=== PATIENT | female | born 1955 | race Caucasian/White ===

== ENCOUNTER 2016-11-12 09:28 | Outpatient (CLI) | payer BC ==
--- NOTE | 2016-11-25 13:10 | Mammography Report ---
DIGITAL SCREENING MAMMOGRAM: 11/12/2016 CLINICAL INDICATION: A 61-year-old for screening. The patient reports having had previous mammograms in [place], [place], but films are not yet available for direct comparison. If they become available, an addendum will be issued. Otherwise, t his will serve as a new baseline. TECHNIQUE: Routine CC and MLO projections were obtained of the breasts as well as bilateral laterall y exaggerated craniocaudal views. FINDINGS: The breasts demonstrate scattered fibroglandular densities bilaterally. A few punctate, t ypically benign calcifications are present. No suspicious masses, clustered microcalcifications, or regions of architectural distortion are identified. IMPRESSION: BENIGN FINDINGS. RECOMMENDATION: Routine annual screening unless otherwise clinically indicated. BIRADS CATEGORY 2 - BENIGN FINDINGS. STANDARD QUALIFYING STATEMENTS 1. This examination was reviewed with the aid of Computer-Aided Detection (CAD). 2. A negative or benign imaging report should not delay biopsy if clinically suspicious findings are present. Consider surgical consultation if warranted. More than 5% of cancers are not identified by i maging. 3. Dense breasts may obscure an underlying neoplasm. JOB #: [id number] EXT JOB #:[id number]
== END 2016-11-12 09:29 | disposition home or self-care (01) ==
LOC: DI 09:28
PROVIDERS: ATTEND Family Medicine
DX: Z12.31 Encounter for screening mammogram for malignant neoplasm of breast (principal)
CPT/HCPCS: 77067

== ENCOUNTER 2016-11-12 09:29 | Outpatient (CLI) | payer BC ==
--- NOTE | 2016-11-13 06:44 | DEXA Report ---
DEXA: 11/12/2016 CLINICAL INDICATION: Osteoporosis. TECHNIQUE: Dual energy x-ray absorptiometry (DXA) was performed on a [employer] system. Regions measured are the AP spine, femoral neck, and, if needed, forearm. COMPARISON: None. In accordance with the International Society for Clinical Densitometry (ISCD) guidelines, data from previous exams may be reanalyzed using current recommendations and techniques. This is done to allow a more accurate basis for comparison with the current study. FINDINGS: The data for the lumbar spine is as follows: REGION BMD (g/cm/cm) T-SCORE Z-SCORE L1 0.715 -3.5 -2.2 L2 0.718 -4.0 -2.7 L3 0.832 -3.1 -1.8 L4 0.913 -2.4 -1.1 TOTAL 0.801 -3.2 -1.9 NOTE: All evaluable vertebrae are used for classification. The data for the hip is as follows: REGION BMD (g/cm/cm) T-SCORE Z-SCORE Neck 0.668 -2.7 -1.4 TOTAL 0.671 -2.7 -1.7 NOTE: The femoral neck or total proximal femur, whichever is lowest, is used for classification. IMPRESSION: THE WHO CLASSIFICATION BASED ON THE INTERNATIONAL REFERENCE STANDARD IS OSTEOPOROSIS. THE FRACTURE RISK IS HIGH. RECOMMENDATION: Patients with diagnosis of osteoporosis or osteopenia should have regular bone mineral density assessment. For those eligible for Medicare, routine testing is allowed once every 2 years. Testing frequency can be increased for patients who have rapidly progressing disease or for those who are receiving medical therapy to restore bone mass. COMMENT: World Health Organization (WHO) definitions for osteoporosis and osteopenia: NORMAL BMD: T-score at -1.0 or higher, fracture risk is low. OSTEOPENIA BMD: T-score between -1.0 and -2.5, fracture risk is increased. OSTEOPOROSIS BMD: T-score at -2.5 or lower, fracture risk high. National Osteoporosis Foundation recommends: 1. Obtain adequate dietary calcium (at least 1200 mg per day) and vitamin D (400 -800 international units per day). 2. Participate, as appropriate, in regular weightbearing and muscle- strengthening exercise. 3. Avoid tobacco use and reduce alcohol and caffeine intake. 4. For more detailed information see the website at www.NOF.org. MTDD
== END 2016-11-12 09:30 | disposition home or self-care (01) ==
LOC: DI 09:29
PROVIDERS: ATTEND Family Medicine
DX: M81.0 Age-related osteoporosis without current pathological fracture (principal)
CPT/HCPCS: 77080

== ENCOUNTER 2017-02-03 13:30 | Outpatient (CLI) | payer BC ==
--- NOTE | 2017-02-03 16:09 | XRAY Report ---
COMPLETE CERVICAL SPINE: 02/03/2017 CLINICAL INDICATION: Neck pain. FINDINGS: AP, lateral, oblique, and odontoid views of the cervical spine demonstrate straightening o f the normal cervical lordosis. There is no evidence of fracture or subluxation. The disk spaces are preserved. The prevertebral soft tissues are unremarkable. IMPRESSION: REVERSAL OF THE NORMAL CERVICAL LORDOSIS. NO EVIDENCE OF FRACTURE. JOB #: [id number] EXT JOB #:[id number]
--- NOTE | 2017-02-03 16:12 | XRAY Report ---
TWO VIEW THORACIC SPINE: 02/03/2017 CLINICAL INDICATION: Pain. FINDINGS: Frontal and lateral views of the thoracic spine demonstrate normal height and alignment of the vertebral bodies. The disk spaces are preserved. There is no evidence of compression fracture. N o paraspinal hematoma is seen. IMPRESSION: NORMAL THORACIC SPINE. JOB #: [id number] EXT JOB #:[id number]
== END 2017-02-03 13:31 | disposition home or self-care (01) ==
LOC: DI.S 13:30
PROVIDERS: ATTEND Nurse Practitioner Family
DX: M54.2 Cervicalgia (principal); M54.9 Dorsalgia, unspecified; R07.9 Chest pain, unspecified
CPT/HCPCS: 72050; 72070

== ENCOUNTER 2018-01-07 09:08 | Outpatient (CLI) | payer BC | END 2018-01-07 09:09 | disposition home or self-care (01) | LOC: DI 09:08 | PROVIDERS: ATTEND Internal Medicine | DX: Q87.43 Marfan syndrome with skeletal manifestation (principal) | CPT/HCPCS: 93306 ==

== ENCOUNTER 2018-02-14 12:47 | Outpatient (CLI) | payer BC | END 2018-02-14 12:48 | disposition home or self-care (01) | LOC: LAB.F 12:47 | PROVIDERS: ATTEND Internal Medicine | DX: E03.9 Hypothyroidism, unspecified (principal); M81.0 Age-related osteoporosis without current pathological fracture | CPT/HCPCS: 36415; 82310; 83519; 84100; 84439; 84443; 84481 ==

== ENCOUNTER 2018-02-15 08:00 | Outpatient (CLI) | payer BC ==
[2018-02-15 18:53] LABS: THYROID STIMULATING HORMONE 0.19 uIU/mL (0.34-5.60)
[2018-02-15 18:55] LABS: FREE T4 (FREE THYROXINE) 1.28 ng/dL (0.58-1.64)
== END 2018-02-15 08:01 ==
LOC: LAB.F 08:00
PROVIDERS: ATTEND Internal Medicine
DX: M81.0 Age-related osteoporosis without current pathological fracture (principal); E03.9 Hypothyroidism, unspecified
CPT/HCPCS: 36415; 82310; 83970; 84100; 84439; 84443; 84481

== ENCOUNTER 2019-03-30 10:56 | Outpatient (CLI) | payer BC ==
--- NOTE | 2019-03-30 16:25 | DEXA Report ---
Reason: OSTEOPOROSIS Procedure Date: 03/30/2019 Accession Number: [id number] / [id number] Procedure: DEX - Dexa Spine and/or Hip CPT Code: Final Report FULL RESULT: EXAM: Dexa Spine and/or Hip DATE: 03/30/2019 11:13 AM CLINICAL HISTORY: POSTMENOPAUSAL. OSTEOPOROSIS. TECHNIQUE: Dual energy x-ray absorptiometry (DXA) was performed on a [email or web address] System. Regions measured are the AP Spine, femoral neck, and if needed forearm. COMPARISON: 11/12/2016 In accordance with the International Society for Clinical Densitometry (ISCD) guidelines, data from previous exams may be reanalyzed using current recommendations and techniques. This is done to allow a more accurate basis for comparison with the current study. FINDINGS: The data for the lumbar spine is as follows: BMD (g/cm/cm) T-SCORE Z-SCORE REGION L1 0.774 -3.0 -1.6 L2 0.803 -3.3 -1.9 L3 0.932 -2.2 -0.9 L4 0.972 -1.9 -0.5 TOTAL 0.878 -2.5 -1.1 NOTE: All evaluable vertebrae are used for classification The data for the hip is as follows: BMD (g/cm/cm) T-SCORE Z-SCORE REGION Neck 0.650 -2.8 -1.5 TOTAL 0.641 -2.9 -1.9 NOTE: The femoral neck or total proximal femur, whichever is lowest, is used for classification. DXA RESULTS SUMMARY: Spine SCAN DATE A[age] BMD CHANGE VS CHANGE VS PREVIOUS PREVIOUS % 4/30[birth year]2019 [age] 0.878 0.077* 9.6* 11[age]12/2016 [age] 0.801 * Denotes significant change at the 95% confidence level. Denotes dissimilar scan types or analysis methods. DXA RESULTS SUMMARY: Hip SCAN DATE AGE BMD CHANGE VS CHANGE VS PREVIOUS PREVIOUS % 4/30[birth year]2019 64.1 0.641 -0.030 -4.5 11[age]12/2016 [age] 0.671 * Denotes significant change at the 95% confidence level. Denotes dissimilar scan types or analysis methods. IMPRESSION: THE WHO CLASSIFICATION BASED ON THE INTERNATIONAL REFERENCE STANDARD IS OSTEOPOROSIS. THE FRACTURE RISK IS HIGH. RECOMMENDATION: Patients with diagnosis of osteoporosis or osteopenia should have regular bone mineral density assessment. For those eligible for Medicare, routine testing is allowed once every 2 years. Testing frequency can be increased for patients who have rapidly progressing disease or for those who are receiving medical therapy to restore bone mass. COMMENT: World Health Organization (WHO) definitions for osteoporosis and osteopenia: NORMAL BMD: T-score at -1.0 or higher, fracture risk is low OSTEOPENIA BMD: T-score between -1.0 and -2.5, fracture risk is increased. OSTEOPOROSIS BMD: T-score at -2.5 or lower, fracture risk is high. National Osteoporosis Foundation recommends: 1. Obtain adequate dietary calcium (at least 1200 mg per day) and vitamin D (400-800 international units per day). 2. Participate, as appropriate, in regular weightbearing and muscle-strengthening exercise. 3. Avoid tobacco use and reduce alcohol and caffeine intake. 4. For more detailed information see the website at www.NOF.org.
== END 2019-03-30 10:57 | disposition home or self-care (01) ==
LOC: DI 10:56
PROVIDERS: ATTEND Registered Nurse
DX: M81.0 Age-related osteoporosis without current pathological fracture (principal); I34.1 Nonrheumatic mitral (valve) prolapse
CPT/HCPCS: 77080; 93306

== ENCOUNTER 2021-05-15 10:27 | Outpatient (CLI) | payer MEDICARE ==
--- NOTE | 2021-05-15 15:52 | DEXA Report ---
PROCEDURE: Dexa Spine and/or Hip INDICATIONS: OSTEOPOROSIS TECHNIQUE: Dual energy x-ray absorptiometry (DXA) was performed on a [employer] System. Regions measur ed are the AP Spine, femoral neck, and if needed forearm. COMPARISON: 03/30/2019 and 11/12/2016. FINDINGS: Lumbar Spine: Bone Mineral Density 0.826 g/cm/cm,T score -3.0, osteoporosis Left Hip: Bone Mineral Density 0.614 g/cm/cm,T score -3.1, osteoporosis Left Femoral Neck: Bone Mineral Density 0.622 g/cm/cm, T score -3.0, osteoporosis (T score greater or equal to -1.0: NORMAL) (T score from -1.1 to -2.4: OSTEOPENIA) (T score less than or equal to -2.5 to: OSTEOPOROSIS) Impression: Osteoporosis. Bone mineral density has decreased 4.2% in the interval since prior exam obtained 020. Patients with diagnosis of osteoporosis or osteopenia should have regular bone mineral density assess ment. For those eligible for Medicare, routine testing is allowed once every 2 years. Testing frequ ency can be increased for patients who have rapidly progressing disease or for those who are receivin g medical therapy to restore bone mass. Reviewed by: Colette Garces MD, PhD on 05/15/2021 3:50 PM PST Approved by: Colette Garces MD, PhD on 05/15/2021 3:50 PM PST Station ID: [id number]
== END 2021-05-15 10:28 | disposition home or self-care (01) ==
LOC: DI 10:27
PROVIDERS: ATTEND Registered Nurse
DX: M81.0 Age-related osteoporosis without current pathological fracture (principal)

== ENCOUNTER 2021-07-28 10:16 | Outpatient (CLI) | payer MEDICARE ==
[2021-07-28 10:48] LABS: CHOL/HDL RATIO 4.2 (<4.4); CHOLESTEROL 252 mg/dL; HDL CHOLESTEROL 60 mg/dL; LDL CHOLESTEROL,CALCULATED 173 mg/dL; LDL/HDL RATIO 2.9 (<4.4); TRIGLYCERIDES 97 mg/dL; VLDL CHOLESTEROL 19 mg/dL
== END 2021-07-28 10:17 | disposition home or self-care (01) ==
LOC: LAB 10:16
PROVIDERS: ATTEND Registered Nurse
DX: E78.5 Hyperlipidemia, unspecified (principal)
CPT/HCPCS: 36415; 80061; 83721

== ENCOUNTER 2022-07-09 14:50 | Outpatient (CLI) | payer MEDICARE | END 2022-07-09 14:51 | disposition home or self-care (01) | LOC: DI 14:50 | PROVIDERS: ATTEND Registered Nurse | DX: Q87.40 Marfan syndrome, unspecified (principal) | CPT/HCPCS: 93306 ==

== ENCOUNTER 2023-03-18 14:55 | Outpatient (CLI) | payer MEDICARE ==
--- NOTE | 2023-03-18 17:35 | DEXA Report ---
PROCEDURE: Dexa Spine and/or Hip INDICATIONS: OSTEOPOROSIS TECHNIQUE: Dual energy x-ray absorptiometry (DXA) was performed on a [employer] System. Regions measur ed are the AP Spine, femoral neck, and if needed forearm. COMPARISON: Dexa on May 15, 2021 FINDINGS: Lumbar Spine: Bone Mineral Density 0.816 g/cm/cm,T score -3. Osteoporosis. There has been no statistically signifi cant change in bone mineral density since the prior study. Left Femoral Neck: Bone Mineral Density 0.626 g/cm/cm, T score -3. Osteoporosis. There has been no statistically signif icant change in bone mineral density since the prior study. Left Hip: Bone Mineral Density 0.623 g/cm/cm,T score -3.1. Osteoporosis. There has been no statistically signi ficant change in bone mineral density since the prior study. (T score greater or equal to -1.0: NORMAL) (T score from -1.1 to -2.4: OSTEOPENIA) (T score less than or equal to -2.5 to: OSTEOPOROSIS) Impression: By WHO criteria, this patient has osteoporosis. No statistical interval change in bone minteral density of the lumbar spine. No statistical interval change in bone minteral density of the hip. Patients with diagnosis of osteoporosis or osteopenia should have regular bone mineral density assess ment. For those eligible for Medicare, routine testing is allowed once every 2 years. Testing frequ ency can be increased for patients who have rapidly progressing disease or for those who are receivin g medical therapy to restore bone mass. Reviewed by: Jeremi Stovall MD on 03/18/2023 5:34 PM PST Approved by: Jeremi Stovall MD on 03/18/2023 5:34 PM PST Station ID: [id number]
== END 2023-03-18 14:56 | disposition home or self-care (01) ==
LOC: DI 14:55
PROVIDERS: ATTEND Internal Medicine Endocrinology, Diabetes & Metabolism
DX: M81.0 Age-related osteoporosis without current pathological fracture (principal)

== ENCOUNTER 2023-07-26 07:24 | Day surgery (SDC) | payer MEDICARE ==
[2023-07-26] MEDS: LACTATED RINGERS 1,000 ML IV ONE (07:31)
[2023-07-26 07:54] VITALS: O2SAT 100
[2023-07-26] MEDS ORDERED: PROPOFOL 500 MG/50 ML 500 MG/50 ML VIAL ONE (08:59)
[2023-07-26] MEDS ORDERED: LIDOCAINE-MPF 2% 5 ML VIAL ONE (08:59)
--- NOTE | 2023-07-26 09:11 | ANESTHESIA ---
Pre-Anesthesia VS, & Labs - Diagnosis SCREENING - Procedure COLONOSCOPY Vital Signs: Temp Pulse Resp BP Pulse Ox O2 Flow Rate 36.7 C 85 18 139/83 H 100 07/26/23 07:41 07/26/23 07:41 07/26/23 07:41 07/26/23 07:41 07/26/23 07:41 Height: 5 ft 9 in Weight (kg): 64.2 kg Body Mass Index: 20.9 BMI Classification: Normal - NPO >8 hours Last Fluid Intake: 0420 - Is Patient ?: No Home Medications and Allergies Home Medications: Ambulatory Orders Estrogens, Conjugated Cream [Premarin Cream] 1 gm VG ONCE 07/19/23 Levothyroxine Sodium [Synthroid] 112 mcg PO DAILY 07/19/23 Risedronate Sodium [Actonel] 35 mg PO OAW 07/19/23 Estrogens, Conjugated Cream [Premarin Cream] 1 gm VG ONCE 07/19/23 Levothyroxine Sodium [Synthroid] 112 mcg PO DAILY 07/19/23 Risedronate Sodium [Actonel] 35 mg PO OAW 07/19/23 Allergies/Adverse Reactions: Allergies Allergy/AdvReac Type Severity Reaction Status Date / Time adhesive tape Allergy Unknown Verified 07/23/23 13:32 alendronate sodium Allergy Unknown Verified 07/26/23 07:51 [From Fosamax] azithromycin Allergy Unknown Verified 07/23/23 13:32 Bisphosphonates Allergy Unknown Verified 07/26/23 07:53 Sulfa (Sulfonamide Allergy Rash Verified 07/19/23 13:58 Antibiotics) Anes History & Medical History - Anesthetic History Anesthesia Complications: reports: No previous complications Family history of Anesthesia Complications: Denies - Medical History Cardiovascular: reports: Other (HX MARFANS/ RECENT ECHO NORMAL, PREVIOUS MVP, WAS TOLD IT "TIGHTENED UP", ACTIVE, NO SOB/CP) Pulmonary: reports: None Gastrointestinal: reports: None Urinary: reports: Kidney stones Musculoskeletal: reports: Osteoarthritis, Other Endocrine/Autoimmune: reports: HyPOthyroidism Skin: reports: None Smoking Status: Never smoker Psychosocial: reports: No issues indicated - Surgical History General: reports: Colonoscopy, Other Eyes Ears Nose Throat (EENT): reports: Tonsil/Adenoidectomy, Other Gynecologic: reports: Other Results - EKG Results EKG Comparison: Reviewed EKG - Echo Results Echo Results: Report reviewed Exam General: Alert, Cooperative Mouth Openin Fingerbreadth Neck Mobility: Normal Mallampati classification: II Thyromental Distance: 4-6 cm Plan Anesthesia Type: Total IV Consent for Procedure(s) Verified and Reviewed: Yes Code Status: Attempt Resuscitation ASA classification: 2-Mild systemic disease Is this case an emergency?: No
[2023-07-26] MEDS: LACTATED RINGERS 350 ML IV ONE (09:46)
[2023-07-26 10:02] VITALS: BP 111/78
--- NOTE | 2023-07-26 13:58 | ANESTHESIA POST OP EVALUATION ---
Anesthesia Post Eval - Post Anesthesia Eval Vitals: Last Vital Signs Temp 36.2 C L 07/26/23 10:00 Pulse 63 07/26/23 10:00 Resp 14 07/26/23 10:00 BP 111/78 07/26/23 10:00 Pulse Ox 100 07/26/23 10:00 O2 Flow Rate CV Function Including HR & BP: Stable Pain Control: Satisfactory Nausea & Vomiting: Negative Mental Status: Baseline Respiratory Status: Airway Patent Hydration Status: Satisfactory Anesthesia Complications: None
== END 2023-07-26 07:25 | disposition home or self-care (01) ==
LOC: SDS 07:24
PROVIDERS: ATTEND Surgery
DX: Z12.11 Encounter for screening for malignant neoplasm of colon (principal); R19.5 Other fecal abnormalities; K57.30 Diverticulosis of large intestine without perforation or abscess without bleeding; K64.1 Second degree hemorrhoids; Z86.010 Personal history of colon polyps; Q87.40 Marfan syndrome, unspecified
CPT/HCPCS: G0121; J7120

== ENCOUNTER 2023-11-16 08:00 | Outpatient (CLI) | payer MEDICARE | END 2023-11-16 23:59 | disposition home or self-care (01) | LOC: LAB.S 08:00 | PROVIDERS: ATTEND Physician Assistant | DX: N39.0 Urinary tract infection, site not specified (principal) | CPT/HCPCS: 87086; 87181 ==